=== PATIENT | male | born 1995 | race Two or more races ===

== ENCOUNTER → 2024-09-22 | Outpatient (CLI) | payer OTHER, SELFPAY ==
--- NOTE | 2024-09-22 15:00 | XR_ITS ---
Examination: Retroperitoneal ultrasound, complete Technique: Multiple high resolution grayscale images of the retroperitoneum obtained, including kidneys and bladder. Exam date and time:September 22, 2024 1521 hrs. Indications: Difficulty urinating beginning 2 months ago Findings: Right kidney 12.9 cm cortex 1.3 cm Left kidney 12.1 cm cortex 1.6 cm Moderate renal parenchymal scar formation No bladder mass Bladder prevoid volume 820 cc postvoid volume 6 cc Negative for prostatomegaly Impression: Moderate bilateral renal parenchymal scar formation, no hydronephrosis
== END | disposition home or self-care (01) ==
PROVIDERS: PCP Physician Assistant Medical; Referring Provider Physician Assistant Medical; Visit Provider Physician Assistant Medical
DX: N28.89 Other specified disorders of kidney and ureter (principal)
CPT/HCPCS: 76770